=== PATIENT | female | born 1970 | race African-American/Black ===

== ENCOUNTER → 2016-04-19 | Outpatient (CLI) | payer OTHER ==
--- NOTE | 2016-04-19 14:05 | KCIC ---
EXAM: Bilateral digital screening mammogram. HISTORY: 45-year-old female presents for screening mammography. COMPARISON: 08/13/2011 TECHNIQUE: Full field digital craniocaudal and mediolateral oblique views of both breasts are obtained. Computer-aided detection is applied. FINDINGS: Breast parenchymal composition: Level B - Scattered fibroglandular densities. There has been slight interval increase and decrease in several circumscribed nodules throughout both breasts, likely representing benign cysts. There is no new suspicious mass. There is no new suspicious calcification or architectural distortion within either breast. IMPRESSION: BI-RADS Category 2: Benign findings. Annual mammography is recommended. This study was interpreted with the benefit of Computerized Aided Detection (CAD). Mammography is not 100% sensitive in detecting breast cancer. Therefore, a self breast exam and a clinical breast exam are very important. A negative mammogram does not negate a clinically suspicious finding and should not result in a delay in biopsying a clinically suspicious abnormality. The patient information was entered into the reminder system with a target for her next mammogram. Electronically signed by: Berta Sky (Apr 19, 2016 14:01:37)
== END | disposition home or self-care (01) ==
LOC: KCIC MAMMO 12:54
PROVIDERS: ATTEND Family Medicine
DX: Z12.31 Encounter for screening mammogram for malignant neoplasm of breast (principal)
CPT/HCPCS: G0202; 77067